=== PATIENT | male | born 1940 | race Caucasian/White ===

== ENCOUNTER 2017-10-06 14:30 | Outpatient (RCR) | payer OTHER, SELFPAY ==
--- NOTE | 2017-09-15 11:03 | PT.OIE ---
Current Diagnoses Anal spasm (09/13/17) Provider Visit Care Team Role Provider Type Enriqueta Dixon MD Attending Provider Non-Staff Specialty: General Surgery Address: [address] [place] [address], [facility] Email: Physical Therapy Initial Evaluation PT-OP-A Visit Information Start: 09/15/17 10:34 Freq: Status: Active Protocol: Document 09/13/17 10:34 [facility] (Rec: 09/15/17 10:50 [facility] [email or web address]) Out-Patient Physical Therapy Visit Information Visit Information Visit Type Initial Evaluation Visit Start Time 09:45 Visit Stop Time 10:30 Total Visit Minutes 45 Visit Number 1 Number of SUPERVISOR [employer]ADING Visits 0 Evaluation Information Evaluation Date 09/13/17 PT-OP-B Current Condition Start: 09/15/17 10:34 Freq: Status: Active Protocol: Document 09/13/17 10:34 [facility] (Rec: 09/15/17 10:50 [facility] [email or web address]) Current Condition History of Current Condition Onset Date 1 year ago Current Complaints pain and spasms of the pelvic floor, inablilty to fully empty the bowels History of Current Condition 76 year old male who presented with a 1 year history of pelvic pain and rectal spasm. He underwent surgery for a fissure repair [address] Dixon at [facility]. He reports doing very well the first week post op but then the second week he was unable to void. He went to the ER at [facility]. Per his report, multiple nurses and the doctor attempted to insert a catheter with no success. A urologist was call in who had to perform basically a TURP procedure to insert the catheter in. He does have a history of a TURP procedure done 10 years ago. Since that time Mere reports being in pain in the rectal region and that everything flared up. He received a botox injection 2 weeks ago but he now notes it is difficult to fully empty his stool because he doesn't have the muscle power to fully evacuate his bowels. He reports being stuck at home for most of his mornings as he will have several bowel movements prior to feeling like he has fully emptyed his bowels. He reports his tissue around his sphincter is very sore and raw from excessive wiping as he feels as if he can't get clean following a bowel movement. Treatment Goals Patient/Caregiver Goals The patients goals include decreasing pelvic pain and improving bowel movement ability PT-OP-F Manual Assessment Start: 09/15/17 10:34 Freq: Status: Active Protocol: Document 09/13/17 10:50 [facility] (Rec: 09/15/17 11:03 [facility] [email or web address]) Manual Assessments Soft Tissue Assessment Soft Tissue Mobility Assessment tightness of the fascial system in the abdominal wall and suprapubic region, myofascial restrictions throught the large intestine, Muscle guarding and spasm of the lumbar spine musculature, tenderness at the rectal sphincter and oburator internus musculature Joint Mobility Assessment Joint Mobility Assessment poor mobility of the lumbar spine and pelvis. It was very difficult today for the patient to perform any pelvic movement. We tried quadraped segmental flexion and extension and it took several minutes to begin getting some movement into the lumbar spine PT-OP-I Pelvic Floor Start: 09/15/17 10:34 Freq: Status: Active Protocol: Document 09/13/17 10:34 [facility] (Rec: 09/15/17 10:50 [facility] [email or web address]) Pelvic Floor Assessment Bowel Bowel Surgery Yes: fissure repair Bowel Symptoms Pain Other Bowel Symptoms history of severe constipation that began 1 year ago and was present prior to his pain symptoms Bowel Movement Frequency 5 times in AM [place] Stool Chart Comments stool is toothpaste consistancy at this time Comments Pelvic Floor Comments a rectal exam was initiated however the patient was so sore at the rectal sphincter that I was not able to complete the examination. PT-OP-Q Treatments Start: 09/15/17 10:34 Freq: Status: Active Protocol: Document 09/13/17 10:34 [facility] (Rec: 09/15/17 10:50 [facility] [email or web address]) Therapeutic Exercises Prone Exercises 1 Prone Exercise Name sphynx strech Side bilateral Reps/Minutes hold 1-2 Comments to relax suprapubic fascia Other Exercises 1 Other Exercise Name quadraped cat/cow Side bilateral Reps/Minutes 10-20 reps Comments with breathing and breath education PT-OP-T Assessment and Plan Start: 09/15/17 10:34 Freq: Status: Active Protocol: Document 09/13/17 10:50 [facility] (Rec: 09/15/17 11:03 [facility] [email or web address]) Physical Therapy Assessment Rehab Potential Rehabilitation Potential Good Evaluation Complexity Number of Personal Factors/Comorbidities 1-2 Number of Body Systems Impaired 1-2 Clinical Presentation at Evaluation Stable Impairments Impairments Functional Mobility Pain ROM Soft Tissue Mobility Tone Goals Three Impairment tightness in the hips and lumbar spine with decreased ROM Disability Benefits Specialist Goal (LTG) Improve hip mobility and general ability of the pelvis to rotate and lumbar spinal movement to help relax the pelvic floor musculature. Madiha is able to perform quadraped cat/cow movements without pain Two Impairment myofascial tightness and restrictions of the suprapubic /abdominal fascia Alf Goal (LTG) improve mobility of the fascial system across the abdomen and lower pelvis and Madiha is educated on a flexibility program that address this tightness One Impairment rectal pain and inability to fully empty the bowels Disability Benefits Specialist Goal (LTG) Madiha is able to tolerate internal pelvic floor release via the rectum to relax the posterior pelvic floor and improve mobility LTG Duration 8 weeks Assessment Summary Assessment Madiha presents to PT after his botox injection in the levator ani. He has had difficulty with not being able to fully empty his bowels and with excessive wiping was really raw and tender at the rectal sphincter today. I attempted a rectal examination of his levator ani however he was so painful he asked for the examination to stop. With external examination he is very tight and guarded throught the abdominal fascia the suprapubic area. He is tight in his hips and low back and lacks full ROM. I started him today with some breathing techniques for pain and a few yoga poses to begin opening up the pelvis region and to provide relaxation. I educated him on bowel care and we talked about using wet wipes instead of toilet paper at this time as well as splinting the perineum to assist with a bowel movement. EMG biofeedback will be attempted next visit along with a rectal examination of the pelvic floor if the patient is able to tolerate this. Physical Therapy Plan Frequency and Duration Frequency of Treatment 1x/Week Duration of Treatment 8 weeks Plan of Care Start Date 09/13/17 Plan of Care End Date 11/01/17 Therapeutic Interventions Therapeutic Interventions Home Exercise Program Manual Therapy Neuromuscular Re-education Self-Care/Home Management Soft Tissue Mobilization Therapeutic Exercises Modalities Biofeedback Please Sign and Return: I have reviewed this Plan of Care and certify that the skilled therapy services above are required to meet the patient?s needs. Physician Signature Date Printed Name and Credentials Clinical Instructor Signature Printed Name and Credentials
--- NOTE | 2017-10-07 21:15 | PT.OTN ---
Current Diagnoses Anal spasm (10/06/17) Physical Therapy Treatment Note PT-OP-A Visit Information Start: 09/15/17 10:34 Freq: Status: Active Protocol: Document 10/06/17 14:30 [facility] (Rec: 10/07/17 21:14 [facility] [email or web address]) Out-Patient Physical Therapy Visit Information Visit Information Visit Type Treatment Note Visit Start Time 14:30 Visit Stop Time 15:15 Total Visit Minutes 45 Visit Number 2 Number of MEDICAL LABORATORY SCIENTIST Visits 0 PT-OP-B Current Condition Start: 09/15/17 10:34 Freq: Status: Active Protocol: Document 09/13/17 10:34 [facility] (Rec: 09/15/17 10:50 [facility] [email or web address]) Current Condition History of Current Condition Onset Date 1 year ago Current Complaints pain and spasms of the pelvic floor, inablilty to fully empty the bowels History of Current Condition 76 year old male who presented with a 1 year history of pelvic pain and rectal spasm. He underwent surgery for a fissure repair [address] Dixon at [facility]. He reports doing very well the first week post op but then the second week he was unable to void. He went to the ER at [facility]. Per his report, multiple nurses and the doctor attempted to insert a catheter with no success. A urologist was call in who had to perform basically a TURP procedure to insert the catheter in. He does have a history of a TURP procedure done 10 years ago. Since that time Mere reports being in pain in the rectal region and that everything flared up. He received a botox injection 2 weeks ago but he now notes it is difficult to fully empty his stool because he doesn't have the muscle power to fully evacuate his bowels. He reports being stuck at home for most of his mornings as he will have several bowel movements prior to feeling like he has fully emptyed his bowels. He reports his tissue around his sphincter is very sore and raw from excessive wiping as he feels as if he can't get clean following a bowel movement. Treatment Goals Patient/Caregiver Goals The patients goals include decreasing pelvic pain and improving bowel movement ability PT-OP-C Subjective Start: 09/15/17 10:34 Freq: Status: Active Protocol: Document 10/06/17 14:30 [facility] (Rec: 10/07/17 21:14 [facility] [email or web address]) OP-PT Subjective Patient Comments Patient Comments Madiha reports no change in symptoms and he is frustrated PT-OP-F Manual Assessment Start: 09/15/17 10:34 Freq: Status: Active Protocol: Document 09/13/17 10:50 [facility] (Rec: 09/15/17 11:03 [facility] [email or web address]) Manual Assessments Soft Tissue Assessment Soft Tissue Mobility Assessment tightness of the fascial system in the abdominal wall and suprapubic region, myofascial restrictions throught the large intestine, Muscle guarding and spasm of the lumbar spine musculature, tenderness at the rectal sphincter and oburator internus musculature Joint Mobility Assessment Joint Mobility Assessment poor mobility of the lumbar spine and pelvis. It was very difficult today for the patient to perform any pelvic movement. We tried quadraped segmental flexion and extension and it took several minutes to begin getting some movement into the lumbar spine PT-OP-I Pelvic Floor Start: 09/15/17 10:34 Freq: Status: Active Protocol: Document 09/13/17 10:34 [facility] (Rec: 09/15/17 10:50 [facility] [email or web address]) Pelvic Floor Assessment Bowel Bowel Surgery Yes: fissure repair Bowel Symptoms Pain Other Bowel Symptoms history of severe constipation that began 1 year ago and was present prior to his pain symptoms Bowel Movement Frequency 5 times in AM [place] Stool Chart Comments stool is toothpaste consistancy at this time Comments Pelvic Floor Comments a rectal exam was initiated however the patient was so sore at the rectal sphincter that I was not able to complete the examination. PT-OP-Q Treatments Start: 09/15/17 10:34 Freq: Status: Active Protocol: Document 10/06/17 14:30 [facility] (Rec: 10/07/17 21:14 [facility] [email or web address]) Therapeutic Exercises Supine Exercises 1 Supine Exercise Name education on the pelvic floor and pelvic floor contractions Reps/Minutes hold 5 seconds rest 5-10 seconds Prone Exercises 1 Prone Exercise Name sphynx strech Side bilateral Reps/Minutes hold 1-2 Comments to relax suprapubic fascia Sidelying Exercises 1 Sidelying Exercise Name clam shells Other Exercises 1 Other Exercise Name quadraped cat/cow Side bilateral Reps/Minutes 10-20 reps Comments with breathing and breath education PT-OP-T Assessment and Plan Start: 09/15/17 10:34 Freq: Status: Active Protocol: Document 10/06/17 14:30 [facility] (Rec: 10/07/17 21:14 [facility] [email or web address]) Physical Therapy Assessment Assessment Summary Assessment Madiha is still having difficulty emptying his bowels all the way most likely due to botox injection. He did not wish to do a rectal release of his pelvic floor stating he would have to be put under to do that because his sphincter is so sore. Treatment focused on the education of pelvic floor facilitation and importance of pelvic floor relaxation with bowel movements Physical Therapy Plan Frequency and Duration Frequency of Treatment 1x/Week Duration of Treatment 8 weeks Plan of Care Start Date 09/13/17 Plan of Care End Date 11/01/17 Therapeutic Interventions Therapeutic Interventions Home Exercise Program Manual Therapy Neuromuscular Re-education Self-Care/Home Management Soft Tissue Mobilization Therapeutic Exercises Modalities Biofeedback Next Visit Focus/Plan Next Note Type Treatment Note Next Visit Plan continue to focus on pelvic floor stengthening, relaxed awareness of the pelvic floor and pain reduction techniques
--- NOTE | 2018-04-12 13:46 | PT.OPDS ---
Current Diagnoses Anal spasm (10/06/17) Provider Visit Care Team Role Provider Type Enriqueta Dixon MD Attending Provider Non-Staff Specialty: General Surgery Address: [address] [place] [address], [facility] Email: Visit Number Visit Number 2 Discharge Summary PT-OP-B Current Condition Start: 09/15/17 10:34 Freq: Status: Active Protocol: Document 09/13/17 10:34 [facility] (Rec: 09/15/17 10:50 [facility] [email or web address]) Current Condition History of Current Condition Onset Date 1 year ago Current Complaints pain and spasms of the pelvic floor, inablilty to fully empty the bowels History of Current Condition 76 year old male who presented with a 1 year history of pelvic pain and rectal spasm. He underwent surgery for a fissure repair [address] Dixon at [facility]. He reports doing very well the first week post op but then the second week he was unable to void. He went to the ER at [facility]. Per his report, multiple nurses and the doctor attempted to insert a catheter with no success. A urologist was call in who had to perform basically a TURP procedure to insert the catheter in. He does have a history of a TURP procedure done 10 years ago. Since that time Mere reports being in pain in the rectal region and that everything flared up. He received a botox injection 2 weeks ago but he now notes it is difficult to fully empty his stool because he doesn't have the muscle power to fully evacuate his bowels. He reports being stuck at home for most of his mornings as he will have several bowel movements prior to feeling like he has fully emptyed his bowels. He reports his tissue around his sphincter is very sore and raw from excessive wiping as he feels as if he can't get clean following a bowel movement. Treatment Goals Patient/Caregiver Goals The patients goals include decreasing pelvic pain and improving bowel movement ability PT-OP-C Subjective Start: 09/15/17 10:34 Freq: Status: Active Protocol: Document 10/06/17 14:30 [facility] (Rec: 10/07/17 21:14 [facility] [email or web address]) OP-PT Subjective Patient Comments Patient Comments Madiha reports no change in symptoms and he is frustrated PT-OP-F Manual Assessment Start: 09/15/17 10:34 Freq: Status: Active Protocol: Document 09/13/17 10:50 [facility] (Rec: 09/15/17 11:03 [facility] [email or web address]) Manual Assessments Soft Tissue Assessment Soft Tissue Mobility Assessment tightness of the fascial system in the abdominal wall and suprapubic region, myofascial restrictions throught the large intestine, Muscle guarding and spasm of the lumbar spine musculature, tenderness at the rectal sphincter and oburator internus musculature Joint Mobility Assessment Joint Mobility Assessment poor mobility of the lumbar spine and pelvis. It was very difficult today for the patient to perform any pelvic movement. We tried quadraped segmental flexion and extension and it took several minutes to begin getting some movement into the lumbar spine PT-OP-I Pelvic Floor Start: 09/15/17 10:34 Freq: Status: Active Protocol: Document 09/13/17 10:34 [facility] (Rec: 09/15/17 10:50 [facility] [email or web address]) Pelvic Floor Assessment Bowel Bowel Surgery Yes: fissure repair Bowel Symptoms Pain Other Bowel Symptoms history of severe constipation that began 1 year ago and was present prior to his pain symptoms Bowel Movement Frequency 5 times in AM [place] Stool Chart Comments stool is toothpaste consistancy at this time Comments Pelvic Floor Comments a rectal exam was initiated however the patient was so sore at the rectal sphincter that I was not able to complete the examination. PT-OP-T Assessment and Plan Start: 09/15/17 10:34 Freq: Status: Active Protocol: Document 04/12/18 13:44 [facility] (Rec: 04/12/18 13:46 [facility] [email or web address]) Physical Therapy Assessment Assessment Summary Assessment Madiha has not been seen in the past 6 months. He did not continue with his plan of care following his second visit in PT. At this time he will be discharged from PT Physical Therapy Plan Discharge Physical Therapy Discharge Reasons No Longer Attending PT Discharge Comments The patient was seen for a total of 2 visits in PT
== END 2017-10-06 16:27 ==
LOC: PHYS 14:30
PROVIDERS: Visit Provider Surgery
DX: K59.4 Anal spasm (principal)
CPT/HCPCS: 97110; 97140; 97161